=== PATIENT | female | born 1985 | race Caucasian/White ===

== ENCOUNTER 2017-03-23 20:38 | Emergency (ER) | payer MEDICAID ==
[~2017-03-23] VITALS: Ht 167.6 cm; Wt 116.8 kg
[2017-03-23] MEDS ORDERED: ONDANSETRON ODT 4 MG PO ONE (21:00)
[2017-03-23 23:11] LABS: HEMATOCRIT 42.5 % (34.6-47.8); HEMOGLOBIN 14.7 g/dL (11.7-16.4)
[2017-03-23 23:42] LABS: BLOOD UREA NITROGEN 9 mg/dL (7-18)
[2017-03-24 01:43] VITALS: BP 108/60
== END 2017-03-24 01:53 | disposition home or self-care (01) ==
LOC: ED 03-24 01:11
DX: S39.012A Strain of muscle, fascia and tendon of lower back, initial encounter (principal); N30.90 Cystitis, unspecified without hematuria; Z88.1 Allergy status to other antibiotic agents; X58.XXXA Exposure to other specified factors, initial encounter; Y93.89 Activity, other specified; Y92.89 Other specified places as the place of occurrence of the external cause; Y99.8 Other external cause status
CPT/HCPCS: 36415; 80048; 81001; 82040; 84703; 85025; 87086; 99284

== ENCOUNTER 2018-02-25 19:39 | Emergency (ER) | payer MEDICAID ==
[~2018-02-25] VITALS: Ht 167.6 cm; Wt 111.9 kg
[2018-02-25 20:11] LABS: CULTURE INDICATED? YES; MICROSCOPIC INDICATED
[2018-02-25 20:28] LABS: BASOPHILS # (AUTO) 0.02 x10^3/uL (0-0.1); BASOPHILS % (AUTO) 0 % (0-1); EOSINOPHILS # (AUTO) 0.08 x10^3/uL (0-0.4); EOSINOPHILS % (AUTO) 1 % (1-7); LYMPHOCYTES # (AUTO) 1.05 x10^3/uL (1-3.4); LYMPHOCYTES % (AUTO) 15 % (22-44); MD NO; MEAN CORPUSCULAR HEMOGLOBIN 33.7 pg (27.0-34.8); MEAN CORPUSCULAR HGB CONC 35.4 g/dL (32.4-35.8); MEAN CORPUSCULAR VOLUME 95.3 fL (80-100); MEAN PLATELET VOLUME 9.7 fL (7.4-10.4); MONOCYTES # (AUTO) 0.43 x10^3/uL (0.2-0.8); MONOCYTES % (AUTO) 6 % (2-9); NEUTROPHILS # (AUTO) 5.44 x10^3/uL (1.8-6.8); NEUTROPHILS % (AUTO) 78 % (42-75); PLATELET COUNT 154 x10^3/uL (130-400); RED BLOOD COUNT 4.01 x10^6/uL (3.82-5.3); RED CELL DISTRIBUTION WIDTH 13.2 % (9.6-15.2)
[2018-02-25 20:30] LABS: ALANINE AMINOTRANSFERASE 15 U/L (12-78); ALBUMIN 3.2 g/dL (3.4-5.0); ANION GAP 9 mmol/L (5-15); CALCIUM 8.3 mg/dL (8.5-10.1); CHLORIDE 108 mmol/L (98-107); CREATININE 0.47 mg/dL (0.55-1.02)
[2018-02-25 20:49] LABS: ALKALINE PHOSPHATASE 64 U/L (45-117); BILIRUBIN,TOTAL 0.8 mg/dL (0.2-1.0); TOTAL PROTEIN 6.8 g/dL (6.4-8.2)
[2018-02-25 22:13] VITALS: BP 104/54
== END 2018-02-25 22:17 | disposition home or self-care (01) ==
LOC: ED 22:00
DX: O26.891 Other specified pregnancy related conditions, first trimester (principal); R10.32 Left lower quadrant pain; Z3A.13 13 weeks gestation of pregnancy
CPT/HCPCS: 36415; 76801; 80053; 81001; 84702; 85025; 87086; 99285

== ENCOUNTER 2018-06-28 10:15 | Outpatient (CLI) | payer MEDICAID ==
[~2018-06-28] VITALS: Ht 167.6 cm; Wt 116.4 kg
[~2018-06-28 10:15] MED LIST: PREN1TAB60 PO
[2018-06-28 10:45] VITALS: BP 102/58
[2018-06-28 10:47] LABS: MICROSCOPIC INDICATED
== END 2018-06-28 11:38 | disposition home or self-care (01) ==
LOC: LDOP 10:15
PROVIDERS: ATTEND Obstetrics & Gynecology Female Pelvic Medicine and Reconstructive Surgery
DX: O26.893 Other specified pregnancy related conditions, third trimester (principal); M54.9 Dorsalgia, unspecified; R10.9 Unspecified abdominal pain; Z3A.29 29 weeks gestation of pregnancy
CPT/HCPCS: 59025; 81001; 87086; 99201; G0463

== ENCOUNTER 2019-07-11 00:06 | Outpatient (CLI) | payer MEDICAID ==
[2019-07-11 01:02] LABS: MICROSCOPIC INDICATED
[2019-07-11] MEDS ORDERED: CEFUROXIME 500 MG TABLET PO ONE (02:30)
== END 2019-07-11 02:45 | disposition home or self-care (01) ==
LOC: LDOP 00:06
PROVIDERS: ATTEND Obstetrics & Gynecology Female Pelvic Medicine and Reconstructive Surgery
DX: O23.33 Infections of other parts of urinary tract in pregnancy, third trimester (principal); Z3A.36 36 weeks gestation of pregnancy
CPT/HCPCS: 59025; 81001; 87086; 99211; G0463

== ENCOUNTER 2020-06-04 07:54 | Emergency (ER) | payer MEDICAID ==
[~2020-06-04] VITALS: Ht 167.6 cm; Wt 129.9 kg
--- NOTE | 2020-06-04 08:20 | NUR ---
ER BAIRON JAMES AT BEDSIDE. PT WITH LEFT FLANK PAIN RADIATES TO LLQ ABD X 3 DAYS, WORSE THIS MORNING WITH INCREASED URINARY FREQUENCY. PT ASSESSMENT AND POC DISCUSSED, QUESTIONS ANSWERED.
--- NOTE | 2020-06-04 08:25 | NUR ---
PT OOB AND AMBULATED TO BATHROOM, INSTRUCTED ON COLLECTION OF CC URINE SAMPLE
[2020-06-04] MEDS ORDERED: KETOROLAC 30 MG/1 ML ONE (08:37)
[2020-06-04] MEDS ORDERED: ONDANSETRON 2MG/ML, 2ML ONE (08:38)
--- NOTE | 2020-06-04 08:44 | NUR ---
PT MED NOTED, VSS. LABS PENDING. CALL LIGHT W/I REACH
[2020-06-04 08:55] LABS: BASOPHILS % (AUTO) 1 % (0-1); EOSINOPHILS % (AUTO) 3 % (1-7); LYMPHOCYTES % (AUTO) 26 % (22-44); MEAN CORPUSCULAR HEMOGLOBIN 29.6 pg (27.0-34.8); MEAN CORPUSCULAR HGB CONC 34.4 g/dL (32.4-35.8); MEAN PLATELET VOLUME 9.5 fL (7.4-10.4); MONOCYTES % (AUTO) 7 % (2-9); NEUTROPHILS % (AUTO) 63 % (42-75); PLATELET COUNT 174 x10^3/uL (130-400); RED CELL DISTRIBUTION WIDTH 14.9 % (9.6-15.2)
[2020-06-04 08:59] LABS: MD NO
[2020-06-04] MEDS ORDERED: ONDANSETRON 2MG/ML, 2ML IVPush ONE (09:00)
[2020-06-04] MEDS ORDERED: KETOROLAC 30 MG/1 ML IVPush ONE (09:00)
[2020-06-04 09:02] LABS: ANION GAP 3 mmol/L (5-15); CALCIUM 8.8 mg/dL (8.5-10.1); CHLORIDE 109 mmol/L (98-107)
[2020-06-04 09:08] LABS: ALANINE AMINOTRANSFERASE 19 U/L (12-78); ALKALINE PHOSPHATASE 63 U/L (45-117); BILIRUBIN,TOTAL 0.5 mg/dL (0.2-1.0); TOTAL PROTEIN 7.5 g/dL (6.4-8.2)
[2020-06-04 09:16] LABS: MICROSCOPIC INDICATED
[2020-06-04] MEDS ORDERED: SODIUM CHLORIDE FLUSH 10ML SYR IVF ONE (09:30)
[2020-06-04 10:04] VITALS: BP 114/66
--- NOTE | 2020-06-04 10:33 | NUR ---
Patient/Caregiver given discharge instructions and they have confirmed that they understand the instructions. Patient ambulatory with steady gait.
== END 2020-06-04 10:34 | disposition home or self-care (01) ==
LOC: ED 10:05
DX: N30.00 Acute cystitis without hematuria (principal); R10.32 Left lower quadrant pain; R11.0 Nausea
CPT/HCPCS: 36415; 80053; 81001; 84703; 85025; 87086; 96374; 96375; 99284; J1885; J2405

== ENCOUNTER 2020-10-16 19:16 | Emergency (ER) | payer MEDICAID ==
[~2020-10-16] VITALS: Ht 167.6 cm; Wt 124.9 kg
[2020-10-16] MEDS ORDERED: KETOROLAC 30 MG/1 ML ONE (19:48)
[2020-10-16] MEDS ORDERED: ONDANSETRON 2MG/ML, 2ML ONE (19:48)
[2020-10-16] MEDS ORDERED: ALBUTEROL/IPRATROPIUM 2.5MG/0.5MG, 3 ML ONE (19:49)
[2020-10-16] MEDS ORDERED: SODIUM CHLORIDE 0.9% 1,000ML IVBOLUS ONE (20:00)
[2020-10-16] MEDS ORDERED: ONDANSETRON 2MG/ML, 2ML IVPush ONE (20:00)
[2020-10-16] MEDS ORDERED: KETOROLAC 30 MG/1 ML IVPush ONE (20:00)
[2020-10-16] MEDS ORDERED: ALBUTEROL/IPRATROPIUM 2.5MG/0.5MG, 3 ML NPPB ONE (20:00)
[2020-10-16 20:25] LABS: BASOPHILS % (AUTO) 1 % (0-1); EOSINOPHILS % (AUTO) 2 % (1-7); LYMPHOCYTES % (AUTO) 25 % (22-44); MEAN CORPUSCULAR HEMOGLOBIN 30.7 pg (27.0-34.8); MEAN CORPUSCULAR HGB CONC 34.9 g/dL (32.4-35.8); MEAN PLATELET VOLUME 9.8 fL (7.4-10.4); MONOCYTES % (AUTO) 7 % (2-9); NEUTROPHILS % (AUTO) 66 % (42-75); PLATELET COUNT 163 x10^3/uL (130-400); RED BLOOD COUNT 4.41 x10^6/uL (3.82-5.3); RED CELL DISTRIBUTION WIDTH 14.7 % (9.6-15.2)
[2020-10-16 20:26] LABS: MD NO
[2020-10-16 20:33] LABS: ANION GAP 5 mmol/L (5-15); CHLORIDE 108 mmol/L (98-107); CREATININE 0.71 mg/dL (0.55-1.02)
[2020-10-16 21:19] VITALS: BP 135/78
== END 2020-10-16 21:21 | disposition home or self-care (01) ==
LOC: ED 21:09
DX: J06.9 Acute upper respiratory infection, unspecified (principal); Z20.822 Contact with and (suspected) exposure to COVID-19; B34.9 Viral infection, unspecified; R06.02 Shortness of breath; J02.9 Acute pharyngitis, unspecified; R51.9 Headache, unspecified; R05 Cough; R50.9 Fever, unspecified; M79.10 Myalgia, unspecified site; F17.210 Nicotine dependence, cigarettes, uncomplicated
CPT/HCPCS: 36415; 71045; 80048; 82040; 83605; 85025; 93005; 94640; 96361; 96374; 96375; 99285; J1885; J2405; J7030; U0003